=== PATIENT | male | born 2000 | race Caucasian/White ===

== ENCOUNTER 2021-10-08 18:30 | Emergency (ER) | payer OTHER, SELFPAY ==
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
[2021-10-08 18:31] VITALS: BP 130/71; PULSE 66; RESP 16; TEMP 36.8; O2SAT 99; BMI 28.2
[2021-10-08 21:12] VITALS: BP 118/73; PULSE 60; RESP 14; TEMP 36.7; O2SAT 99
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
[2021-10-08 22:13] VITALS: BP 128/66; PULSE 52; RESP 16; TEMP 36.3; O2SAT 99
[2021-10-08] MEDS: Ibuprofen 600 MG TABLET PO (23:17)
== END 2021-10-08 23:27 | disposition home or self-care (01) ==
PROVIDERS: Emergency Provider Internal Medicine
DX: S13.4XXA Sprain of ligaments of cervical spine, initial encounter (principal); S29.012A Strain of muscle and tendon of back wall of thorax, initial encounter; S39.012A Strain of muscle, fascia and tendon of lower back, initial encounter; S06.0X0A Concussion without loss of consciousness, initial encounter; M54.2 Cervicalgia; V43.52XA Car driver injured in collision with other type car in traffic accident, initial encounter; Y93.9 Activity, unspecified; Y92.410 Unspecified street and highway as the place of occurrence of the external cause; Y99.9 Unspecified external cause status
CPT/HCPCS: 70450; 71046; 72100; 72125; 99284